=== PATIENT | male | born 1940 | race African-American/Black ===

== ENCOUNTER 2024-02-28 04:26 | Day surgery (SDC) | payer BC ==
[2024-02-25 11:24] VITALS: BMI 34.0
[2024-02-28] MEDS ORDERED: HEPARIN NA (PORCINE) 5,000 UNITS/ML 1ML VIAL ONE ×2 (07:36→10:55)
[2024-02-28] MEDS ORDERED: POVIDONE-IODINE OINTMENT 10% - 28.4 GM TUBE ONE (07:36)
[2024-02-28] MEDS ORDERED: LIDOCAINE HCL 1%, 10 MG/ML (20ML VIAL) ONE (07:36)
[2024-02-28 07:45] LABS: INR 1.1 (0.83-1.09); PROTHROMBIN TIME (PATIENT) 12.4 SEC (9.7-13.0)
[2024-02-28] MEDS ORDERED: FENTANYL CITRATE/PF 50 MCG/ML VIAL ONE (08:28)
[2024-02-28] MEDS ORDERED: MIDAZOLAM HCL 2 MG/2 ML SINGLE DOSE VIAL ONE (08:29)
[2024-02-28] MEDS ORDERED: ROPIVACAINE HCL 0.5% 30ML VIAL ONE (08:32)
[2024-02-28] MEDS ORDERED: LIDOCAINE HCL/PF 2% SDV 5ML VIAL ONE (08:34)
[2024-02-28] MEDS: ceFAZolin SODIUM 1 GM VIAL IVPB ONE (09:10)
[2024-02-28] MEDS: LIDOCAINE HCL 1%, 10 MG/ML (20ML VIAL) INF ONE ×2 (09:25)
[2024-02-28] MEDS ORDERED: ONDANSETRON 4 MG/2 ML VIAL IVPUSH PRN (10:59)
[2024-02-28] MEDS ORDERED: LACTATED RINGERS SOLUTION 1,000 ML IV SCH (11:00)
[2024-02-28 11:44] VITALS: BP 138/77; PULSE 77; RESP 18
[2024-02-28 11:53] VITALS: TEMP 97.4
== END 2024-02-28 15:45 | disposition home or self-care (01) ==
LOC: JASU-SURG 04:26
PROVIDERS: ATTEND Surgery Vascular Surgery
PROC: 03180ZD Bypass Left Brachial Artery to Upper Arm Vein, Open Approach (ICD-10-PCS; principal; 2024-02-28 08:00)
DX: I12.0 Hypertensive chronic kidney disease with stage 5 chronic kidney disease or end stage renal disease (principal); E11.22 Type 2 diabetes mellitus with diabetic chronic kidney disease; N18.6 End stage renal disease
CPT/HCPCS: 36415; 82962; 84132; 85610; 86850; 86900; 86901; 94760; J1644

== ENCOUNTER 2024-08-21 03:58 | Day surgery (SDC) | payer BC ==
[2024-08-19 17:07] VITALS: BMI 36.2
[2024-08-21] MEDS ORDERED: PAPAVERINE HCL 30 MG/1 ML 10 ML VIAL NR ONE (09:43)
[2024-08-21] MEDS ORDERED: ROPIVACAINE HCL 0.5% 30ML VIAL ONE ×2 (09:53→09:56)
[2024-08-21] MEDS ORDERED: MIDAZOLAM HCL 2 MG/2 ML SINGLE DOSE VIAL ONE ×3 (09:54→11:14)
[2024-08-21] MEDS: ceFAZolin SODIUM 1 GM VIAL IVPB ONE ×2 (10:35)
[2024-08-21] MEDS: LIDOCAINE HCL 1%, 10 MG/ML (50 mL VIAL) INF ONE ×2 (11:30)
[2024-08-21 15:36] VITALS: RESP 20; TEMP 97.1
[2024-08-21 15:39] VITALS: BP 118/75; PULSE 71
== END 2024-08-21 14:24 | disposition home or self-care (01) ==
LOC: JASU-SURG 03:58
PROVIDERS: ATTEND Surgery
PROC: 057F0ZZ Dilation of Left Cephalic Vein, Open Approach (ICD-10-PCS; principal; 2024-08-21 10:00)
DX: I12.0 Hypertensive chronic kidney disease with stage 5 chronic kidney disease or end stage renal disease (principal); N18.5 Chronic kidney disease, stage 5; Z99.2 Dependence on renal dialysis
CPT/HCPCS: 82962; 94760

== ENCOUNTER → 2024-11-11 | Day surgery (SDC) | payer BC, OTHER ==
[~2024-11-11] MED LIST: FENTANYL CITRATE/PF 50 MCG/ML VIAL ONE; HEPARIN NA (PORCINE) 5,000 UNITS/ML 1ML VIAL ONE; HEPARIN NA (PORCINE) 5,000 UNITS/ML 1ML VIAL SQ ONE; MIDAZOLAM HCL 2 MG/2 ML SINGLE DOSE VIAL ONE
[2024-11-11 13:00] LABS: BASO % 0.8 % (0-2.0); EOS % 2.4 % (0-4.5); HEMATOCRIT 29.9 % (35.4-49); LYMPH % 26.1 % (8-40); MCH 27.7 pg (25.7-33.7); MCHC 33.4 g/dl (32.0-35.9); MEAN CELL VOLUME 83.1 fl (80-96); MEAN PLT VOLUME 8.7 fl (7.5-11.1); MONO % 12.9 % (3.8-10.2); NEUT % 57.8 % (42.8-82.8); PLATELET COUNT 175 10^3/uL (134-434); RDW 17.1 % (11.9-15.9); WHITE BLOOD COUNT 6.2 K/mm3 (4.0-10.0)
[2024-11-11 13:08] LABS: INR 1.12 (0.83-1.09); PROTHROMBIN TIME (PATIENT) 12.3 SEC (9.7-13.0)
[2024-11-11 13:20] LABS: CHLORIDE 111 mmol/L (98-107); POTASSIUM 4.1 mmol/L (3.5-5.1); SODIUM 139 mmol/L (136-145)
[2024-11-11 13:21] LABS: CALCIUM 9.1 mg/dL (8.5-10.1)
[2024-11-11 13:22] LABS: ALBUMIN 3.2 g/dl (3.4-5.0); ANION GAP 6 mmol/L (4-13); BLOOD UREA NITROGEN 34.4 mg/dL (7-18); CO2 23 mmol/L (21-32); GLUCOSE,RANDOM 97 mg/dL (74-106)
[2024-11-11 13:25] LABS: CREATININE 3.7 mg/dL (0.55-1.3); SGOT/AST 13 U/L (15-37); SGPT/ALT 11 U/L (13-61)
[2024-11-11 13:27] LABS: BILIRUBIN,TOTAL 0.5 mg/dL (0.2-1); TOT PROT 7.2 g/dl (6.4-8.2)
[2024-11-11 13:28] LABS: ALK PHOS 83 U/L (45-117)
[2024-11-11] MEDS: MIDAZOLAM HCL 2 MG/2 ML SINGLE DOSE VIAL IVPUSH ONE (13:44)
[2024-11-11] MEDS: FENTANYL CITRATE/PF 50 MCG/ML VIAL IVPUSH ONE (13:44)
[2024-11-11] MEDS: HEPARIN NA (PORCINE) 5,000 UNITS/ML 1ML VIAL IVPUSH ONE (13:44)
[2024-11-11 14:40] VITALS: BP 140/79; PULSE 68; RESP 18
== END | disposition home or self-care (01) ==
LOC: JRADIR 11:53
PROVIDERS: ATTEND Surgery
PROC: B51WYZZ Fluoroscopy of Dialysis Shunt/Fistula using Other Contrast (ICD-10-PCS; principal; 2024-11-11)
DX: I77.0 Arteriovenous fistula, acquired (principal); I12.0 Hypertensive chronic kidney disease with stage 5 chronic kidney disease or end stage renal disease; N18.9 Chronic kidney disease, unspecified
CPT/HCPCS: 36415; 36901; 37248; 75820-TC-FY; 76937; 80053; 85025; 85610; C1725; C1769; C1887; C1894; J1644